=== PATIENT | female | born 1960 | race Caucasian/White ===

== ENCOUNTER 2019-12-01 20:44 | Emergency (ER) | payer MEDICAID, SELFPAY ==
[2019-12-01 21:45] VITALS: BP 137/75
== END 2019-12-01 21:45 | disposition home or self-care (01) ==
LOC: ED 20:44
DX: U07.1 COVID-19 (principal); B34.9 Viral infection, unspecified; E11.9 Type 2 diabetes mellitus without complications
CPT/HCPCS: U0003-CS